=== PATIENT | female | born 1980 | race Asian ===

== ENCOUNTER 2018-10-28 19:50 | Emergency (ER) | payer OTHER ==
[~2018-10-28] VITALS: Ht 154.9 cm; Wt 40.8 kg
[2018-10-28 20:25] VITALS: BP 102/57
[2018-10-28 22:40] VITALS: BP 102/57
== END 2018-10-28 22:40 | disposition home or self-care (01) ==
LOC: MED 19:50
DX: J40 Bronchitis, not specified as acute or chronic (principal)
CPT/HCPCS: 71045; 93005; 99283